=== PATIENT | female | born 1990 | race Asian ===

== ENCOUNTER 2016-10-17 16:05 | Emergency (ER) | payer OTHER ==
[~2016-10-17] VITALS: Ht 160 cm; Wt 97.5 kg
[2016-10-17 16:14] VITALS: TEMP 98.7
[2016-10-17 17:33] VITALS: BP 143/81
== END 2016-10-17 17:32 | disposition home or self-care (01) ==
LOC: ED 16:05
DX: J32.9 Chronic sinusitis, unspecified (principal); G43.909 Migraine, unspecified, not intractable, without status migrainosus; W19.XXXA Unspecified fall, initial encounter
CPT/HCPCS: 96372; 99283; J0696; J3030

== ENCOUNTER 2016-11-02 10:28 | Emergency (ER) | payer OTHER ==
[~2016-11-02] VITALS: Ht 160 cm; Wt 127.0 kg
[2016-11-02 10:39] VITALS: BP 168/109; TEMP 98.2
== END 2016-11-02 10:54 | disposition home or self-care (01) ==
LOC: ED 10:28
DX: J02.9 Acute pharyngitis, unspecified (principal)
CPT/HCPCS: 99281

== ENCOUNTER 2017-05-12 12:08 | Emergency (ER) | payer OTHER ==
[~2017-05-12] VITALS: Ht 160 cm; Wt 84.8 kg
[2017-05-12 18:37] VITALS: BP 147/94; TEMP 97.2
== END 2017-05-12 18:44 | disposition home or self-care (01) ==
LOC: ED 12:08
DX: K02.9 Dental caries, unspecified (principal); G43.909 Migraine, unspecified, not intractable, without status migrainosus
CPT/HCPCS: 96372; 96374; 96375; 99284; J1885; J2405; J3030

== ENCOUNTER 2017-06-06 21:53 | Emergency (ER) | payer OTHER ==
[~2017-06-06] VITALS: Ht 160 cm; Wt 89.4 kg
[2017-06-06 22:12] VITALS: TEMP 98.6
[2017-06-07 00:05] VITALS: BP 167/91
== END 2017-06-07 00:10 | disposition home or self-care (01) ==
LOC: ED 21:53
DX: J30.89 Other allergic rhinitis (principal); I10 Essential (primary) hypertension; J02.9 Acute pharyngitis, unspecified; R05 Cough
CPT/HCPCS: 87880; 94664; 99283

== ENCOUNTER 2017-08-15 09:48 | Emergency (ER) | payer OTHER ==
[~2017-08-15] VITALS: Ht 162.6 cm; Wt 131.5 kg
[2017-08-15 09:55] VITALS: BP 147/100; TEMP 99
[2017-08-15 11:27] LABS: PLATELET COUNT 305 K/uL (152-353)
[2017-08-15 11:31] LABS: POTASSIUM 3.2 mmol/L (3.6-5.2)
== END 2017-08-15 12:24 | disposition home or self-care (01) ==
LOC: ED 09:48
PROVIDERS: Emergency Medicine
DX: N39.0 Urinary tract infection, site not specified (principal)
CPT/HCPCS: 36415; 80048; 81000; 81025; 85027; 99283

== ENCOUNTER 2017-08-29 12:57 | Emergency (ER) | payer OTHER ==
[~2017-08-29] VITALS: Ht 162.6 cm; Wt 131.5 kg
[2017-08-29 13:08] VITALS: TEMP 97.7
[2017-08-29 14:05] VITALS: BP 144/102
== END 2017-08-29 14:17 | disposition home or self-care (01) ==
LOC: ED 12:57
DX: G43.909 Migraine, unspecified, not intractable, without status migrainosus (principal); I10 Essential (primary) hypertension
CPT/HCPCS: 96372; 99283; J1885; J2550

== ENCOUNTER 2019-09-09 10:03 | Emergency (ER) | payer OTHER ==
[~2019-09-09] VITALS: Ht 162.6 cm; Wt 113.4 kg
[2019-09-09 10:27] VITALS: TEMP 98.7
[2019-09-09 12:56] VITALS: BP 141/80
== END 2019-09-09 12:56 | disposition home or self-care (01) ==
LOC: ED 10:03
DX: R05 Cough (principal); Z20.828 Contact with and (suspected) exposure to other viral communicable diseases
CPT/HCPCS: 87502; 87635; 87651; 99283; U00003